=== PATIENT | male | born 1965 | race Caucasian/White ===

== ENCOUNTER 2017-07-10 05:36 | Day surgery (SDC) | payer MEDICARE ==
[2017-07-07 08:55] VITALS: BP 124/83
[2017-07-07 09:22] LABS: EOSINOPHILS % (AUTO) 1.5 % (0.0-8.0); LYMPHOCYTES % (AUTO) 15.9 % (21.0-51.0); MEAN CORPUSCULAR HEMOGLOBIN 32.3 pg (27.0-33.0); MEAN CORPUSCULAR HGB CONC 34.7 g/dL (32.0-36.0); MEAN CORPUSCULAR VOLUME 93.2 fL (79-99); MONOCYTES % (AUTO) 9.2 % (3.0-13.0); NEUTROPHILS % (AUTO) 72.4 % (40.0-77.0); PLATELET COUNT (AUTO) 265 K/uL (130-400); RED BLOOD CELL COUNT(AUTO) 5.25 MIL/uL (4.50-6.20); RED CELL DISTRIBUTION WIDTH 13.8 % (11.0-15.5); WHITE BLOOD COUNT (AUTO) 10.9 K/uL (4.8-10.8)
[2017-07-07 09:29] LABS: CREATININE 1.1 mg/dL (0.5-1.5); POTASSIUM 4.7 mmol/L (3.5-5.1)
[2017-07-07 09:30] LABS: APPEARANCE,URINE Clear (CLEAR); BILIRUBIN,URINE Negative (NEGATIVE); COLOR,URINE Yellow (YELLOW); GLUCOSE, URINE (UA) Negative (NEGATIVE); KETONES,URINE Negative (NEGATIVE); LEUKOCYTE ESTERASE ,URINE Negative (NEGATIVE); NITRATE,URINE Negative (NEGATIVE); OCCULT BLOOD,URINE Negative (NEGATIVE); PH,URINE 7.5 (5.0-8.0); PROTEIN,URINE Negative (NEGATIVE); UROBILINOGEN,URINE 0.2 mg/dL (0.2-1.0)
[2017-07-07 09:34] LABS: INR 0.96 (0.85-1.15); PARTIAL THROMBOPLASTIN TIME 26.8 SEC (26.3-35.5); PROTHROMBIN TIME 10.1 SEC (9.6-11.6)
[2017-07-10] VITALS (10 sets, daily range): BP systolic 118–146; BP diastolic 78–100
[~2017-07-10] VITALS: Ht 181.6 cm; Wt 96.4 kg
[~2017-07-10 05:36] MED LIST: BUPR-47 PO; MELO-106 PO; METO-408 PO; PREG75 PO; TAPE75TA2 PO; TRAM50TA4 PO
[2017-07-10] MEDS ORDERED: ASPI-1197 PO (06:58)
[2017-07-10] MEDS ORDERED: SODIUM CHLORIDE 0.9% 1000ML 1,000 ML IV ONE (07:05)
[2017-07-10] MEDS ORDERED: HEPARIN SODIUM 1000UNIT/ML 10ML VIAL ONE (07:16)
[2017-07-10] MEDS ORDERED: ISOVUE-370 50ML VIAL IV ONE (07:16)
[2017-07-10] MEDS ORDERED: IOPAMIDOL-370 100 ML VIAL IV ONE (07:16)
[2017-07-10] MEDS ORDERED: LIDOCAINE HCL 2% 20ML ONE (07:17)
[2017-07-10] MEDS ORDERED: NITROGLYCERIN 5 MG/ML 10 ML VIAL IV ONE (07:31)
[2017-07-10] MEDS ORDERED: BIVALIRUDIN 250 MG/VIAL IV ONE (07:31)
[2017-07-10] MEDS ORDERED: SODIUM CHLORIDE 0.9% 1000ML 1,000 ML IV SCH (08:04)
[2017-07-10] MEDS ORDERED: FURO20TA6 PO ×3 (08:12→12:22)
[2017-07-10] MEDS ORDERED: GLUCAGON 1MG KIT 1 MG ML IM PRN (08:15)
[2017-07-10] MEDS ORDERED: DEXTROSE 50%-WATER 50 ML DISP.SYRIN IV PRN (08:15)
[2017-07-10] MEDS ORDERED: TRAMADOL HCL 50 MG TABLET ONE (08:41)
== END 2017-07-10 12:50 | disposition home or self-care (01) ==
LOC: DAH 05:36
PROVIDERS: ATTEND Internal Medicine Cardiovascular Disease
DX: I50.32 Chronic diastolic (congestive) heart failure (principal); Z86.73 Personal history of transient ischemic attack (TIA), and cerebral infarction without residual deficits; R00.0 Tachycardia, unspecified; Z98.890 Other specified postprocedural states; Z79.899 Other long term (current) drug therapy
CPT/HCPCS: 36415; 71045; 80048; 81003; 85025; 85610; 85730; 93005; 93458; A4606; C1760; C1894; J1644; J3490 ×2; J7030; Q9967 ×2; J0583